=== PATIENT | female | born 1945 | race Caucasian/White ===

== ENCOUNTER 2021-11-28 23:48 | Emergency (ER) | payer MEDICARE, OTHER ==
[2021-11-29 01:52] LABS: RED BLOOD COUNT 3.64 M/UL (4.00-5.10); WHITE BLOOD COUNT 4.4 K/UL (4.5-11.0)
[2021-11-29 02:18] LABS: BUN/CREATININE RATIO 17 (0-10)
[2021-11-29] MEDS ORDERED: CEPHALEXIN500 MG PO (03:38)
[2021-11-30 09:04] LABS: CANDIDA ALBICANS Not Detected (Negative); CANDIDA KRUSEI Not Detected (Negative); CANDIDA TROPICALIS Not Detected (Negative); ESCHERICHIA COLI Not Detected (Negative); HAEMOPHILUS INFLUENZAE Not Detected (Negative); KLEBSIELLA OXYTOCA Not Detected (Negative); KLEBSIELLA PNEUMONIAE Not Detected (Negative); KPC-CARBAPENEM-RESISTANCE GENE Not Detected (Negative); PROTEUS Not Detected (Negative); PSEUDOMONAS AERUGINOSA Not Detected (Negative); SERRATIA MARCESANS Not Detected (Negative); STREP AGALACTIAE (GROUP B) Not Detected (Negative); STREP PYOGENES (GROUP A) Not Detected (Negative); STREPTOCOCCUS Not Detected (Negative); vanA/B (VANCOMYCIN RESIST GENE Not Detected (Negative)
[2021-11-30 10:15] LABS: STAPHYLOCOCCUS DETECTED (Negative); STAPHYLOCOCCUS AUREUS DETECTED (Negative)
== END 2021-11-29 11:38 | disposition home or self-care (01) ==
LOC: ER1 23:48
PROVIDERS: Family Medicine; Nurse Practitioner
DX: S01.01XA Laceration without foreign body of scalp, initial encounter (principal); D32.9 Benign neoplasm of meninges, unspecified; N39.0 Urinary tract infection, site not specified; I11.0 Hypertensive heart disease with heart failure; I50.9 Heart failure, unspecified; E11.9 Type 2 diabetes mellitus without complications; I48.91 Unspecified atrial fibrillation; W19.XXXA Unspecified fall, initial encounter
CPT/HCPCS: 12002; 51701; 70450; 71045; 80053; 81001; 82140; 82550; 82553; 83605; 84484; 85025; 85610; 85730; 87040; 87077; 87086; 87150; 87186; 93005; 99284